=== PATIENT | male | born 2000 | race African-American/Black ===

== ENCOUNTER 2019-03-10 18:14 | Emergency (ER) | payer OTHER ==
[~2019-03-10] VITALS: Ht 190.5 cm; Wt 90.7 kg
[2019-03-10 18:15] VITALS: BP 144/81
[2019-03-10] MEDS ORDERED: MOBIC15 MG PO (19:56)
[2019-03-10] MEDS ORDERED: LIDOCAINE PAIN1 EACH TOP (19:56)
== END 2019-03-10 22:42 | disposition home or self-care (01) ==
LOC: ER 18:14
DX: M54.2 Cervicalgia (principal); M54.6 Pain in thoracic spine; V89.2XXA Person injured in unspecified motor-vehicle accident, traffic, initial encounter; Y93.89 Activity, other specified; Y92.89 Other specified places as the place of occurrence of the external cause; Y99.8 Other external cause status

== ENCOUNTER 2019-03-13 13:35 | Emergency (ER) | payer OTHER ==
[~2019-03-13] VITALS: Ht 190.5 cm; Wt 95.3 kg
[~2019-03-13 13:35] MED LIST: LIDOCAINE PAIN1 EACH TOP; MOBIC15 MG PO
[2019-03-13 13:36] VITALS: BP 145/85
[2019-03-13] MEDS ORDERED: CYCLOBENZAPRINE5 MG PO (14:00)
== END 2019-03-13 14:00 | disposition home or self-care (01) ==
LOC: ER 13:35
DX: M62.838 Other muscle spasm (principal); M54.2 Cervicalgia; M25.512 Pain in left shoulder; Z79.899 Other long term (current) drug therapy; V49.88XA Car occupant (driver) (passenger) injured in other specified transport accidents, initial encounter; Y93.89 Activity, other specified; Y92.413 State road as the place of occurrence of the external cause; Y99.9 Unspecified external cause status

== ENCOUNTER 2019-04-09 17:53 | Emergency (ER) | payer OTHER ==
[~2019-04-09] VITALS: Ht 190.5 cm; Wt 90.7 kg
[~2019-04-09 17:53] MED LIST changes: +CYCLOBENZAPRINE5 MG PO
[2019-04-09] MEDS ORDERED: PREDNISONE 20 M20 MG PO (19:29)
[2019-04-09] MEDS ORDERED: ZANAFLEX4 MG PO (19:29)
[2019-04-09] MEDS ORDERED: VOLTAREN GEL 1100 G2 TOP (19:29)
[2019-04-09 19:38] VITALS: BP 152/96
== END 2019-04-09 19:38 | disposition home or self-care (01) ==
LOC: ER 17:53
DX: M54.12 Radiculopathy, cervical region (principal); M54.6 Pain in thoracic spine; V89.2XXA Person injured in unspecified motor-vehicle accident, traffic, initial encounter; Y92.89 Other specified places as the place of occurrence of the external cause; Y93.89 Activity, other specified; Y99.8 Other external cause status